=== PATIENT | female | born 1975 | race Caucasian/White ===

== ENCOUNTER 2020-09-27 16:22 | Emergency (ER) | payer OTHER ==
[2020-09-27 16:25] VITALS: BP 122/61; PULSE 70; TEMP 97.5; BMI 23.1
[2020-09-27] MEDS ORDERED: ACETAMINOPHEN 500 MG TABLET (FP) PO ONE (16:55)
[2020-09-27] MEDS ORDERED: ACETAMINOPHEN 500 MG TABLET (FP) ONE (16:58)
== END 2020-09-27 17:31 | disposition home or self-care (01) ==
LOC: JERFT 16:22
DX: S09.90XA Unspecified injury of head, initial encounter (principal)
CPT/HCPCS: 99283-25

== ENCOUNTER 2022-12-12 09:43 | Emergency (ER) | payer OTHER ==
[2022-12-12 09:51] VITALS: BP 115/79; PULSE 81; RESP 18; TEMP 97.8; BMI 25.4
== END 2022-12-12 10:46 | disposition home or self-care (01) ==
LOC: JER 09:43
DX: K62.5 Hemorrhage of anus and rectum (principal); R10.9 Unspecified abdominal pain; G89.29 Other chronic pain; K64.4 Residual hemorrhoidal skin tags
CPT/HCPCS: 99282-25